=== PATIENT | male | born 1940 | race Caucasian/White ===

== ENCOUNTER 2024-09-04 11:49 | Emergency (ER) | payer MEDICARE ==
[~2024-09-04] VITALS: Wt 88.5 kg
[2024-09-04 12:06] LABS: BASO % 0.2 % (0.0-1.0); EOS # 0.2 10*3/uL (0.0-0.4); EOS % 2.2 % (1.0-4.0); HEMATOCRIT 34.5 % (42.0-52.0); MEAN CORPUSCULAR HGB CONC 33.6 g/dl (33.0-37.0); MEAN PLATELET VOLUME 9.6 fl (9.6-12.3); MONO # 1.3 10*3/uL (0.1-1.0); MONO % 13.9 % (3.0-9.0); NEUT % 64.8 % (47.0-73.0); PLATELET COUNT AUTOMATED 328 10*3/uL (130-400); RED BLOOD COUNT 3.63 10*6/uL (4.50-5.90); RED CELL DISTRI WIDTH 12.4 % (0-14.5); WHITE BLOOD COUNT 9.2 10*3/uL (4.8-10.8)
[2024-09-04] MEDS ORDERED: MEMANTINE HCL5 MG PO (12:12)
[2024-09-04] MEDS ORDERED: FUROSEMIDE40 MG PO (12:12)
[2024-09-04] MEDS ORDERED: AMLODIPINE BESYL5 MG PO (12:13)
[2024-09-04] MEDS ORDERED: METOPROLOL TART50 M1 PO (12:13)
[2024-09-04] MEDS ORDERED: ATORVASTATIN CA80 M1 PO (12:13)
[2024-09-04] MEDS ORDERED: TAMSULOSIN HCL0.4 MG PO (12:14)
[2024-09-04] MEDS ORDERED: NITROGLYCERIN0.4 MG SL (12:15)
[2024-09-04] MEDS ORDERED: MELATONIN10 M2 PO (12:16)
[2024-09-04] MEDS ORDERED: ASPIRIN ADULT L81 M2 PO (12:16)
[2024-09-04] MEDS ORDERED: VITAMIN C1000 M5 PO (12:17)
[2024-09-04 12:28] LABS: POTASSIUM 4.2 mmol/L (3.4-5.1)
== END 2024-09-04 13:59 | disposition home or self-care (01) ==
LOC: ED 11:49
PROVIDERS: Nurse Practitioner Family
DX: M25.552 Pain in left hip (principal); W19.XXXA Unspecified fall, initial encounter